=== PATIENT | female | born 1995 | race Caucasian/White ===

== ENCOUNTER 2018-02-25 10:46 | Inpatient (IN) | payer OTHER ==
[~2018-02-25] VITALS: Ht 175.3 cm; Wt 85.9 kg
[2018-02-25] MEDS ORDERED: SODIUM CHLORIDE 0.9% 1,000ML IVBOLUS ONE (13:00)
[2018-02-25] MEDS ORDERED: THIAMINE 100 MG in SODIUM CHLORIDE 0.9% 50 ML IVPB ONE (13:00)
[2018-02-25] MEDS ORDERED: SODIUM CHLORIDE FLUSH 10ML SYR IVF ONE (13:00)
[2018-02-25] MEDS ORDERED: ONDANSETRON ODT 4 MG PO ONE (13:00)
[2018-02-25 13:12] LABS: BASOPHILS # (AUTO) 0.02 x10^3/uL (0-0.1); BASOPHILS % (AUTO) 0 % (0-1); EOSINOPHILS % (AUTO) 0 % (1-7); LYMPHOCYTES # (AUTO) 0.34 x10^3/uL (1-3.4); LYMPHOCYTES % (AUTO) 4 % (22-44); MD NO; MEAN CORPUSCULAR HEMOGLOBIN 34.6 pg (27.0-34.8); MEAN CORPUSCULAR HGB CONC 33.9 g/dL (32.4-35.8); MEAN CORPUSCULAR VOLUME 102.1 fL (80-100); MEAN PLATELET VOLUME 7.1 fL (7.4-10.4); MONOCYTES # (AUTO) 0.22 x10^3/uL (0.2-0.8); MONOCYTES % (AUTO) 3 % (2-9); NEUTROPHILS # (AUTO) 7.08 x10^3/uL (1.8-6.8); NEUTROPHILS % (AUTO) 92 % (42-75); PLATELET COUNT 222 x10^3/uL (130-400); RED BLOOD COUNT 4.25 x10^6/uL (3.82-5.3); RED CELL DISTRIBUTION WIDTH 13.2 % (9.6-15.2)
[2018-02-25] MEDS ORDERED: ONDANSETRON ODT 4 MG ONE (13:21)
[2018-02-25] MEDS ORDERED: LORazepam 2 MG/ML, 1ML ONE (13:22)
[2018-02-25 13:23] LABS: ALBUMIN 4.5 g/dL (3.4-5.0); ANION GAP 18 mmol/L (5-15); CALCIUM 8.7 mg/dL (8.5-10.1); CHLORIDE 103 mmol/L (98-107)
[2018-02-25 13:28] LABS: ALANINE AMINOTRANSFERASE 123 U/L (12-78); ALKALINE PHOSPHATASE 92 U/L (45-117); BILIRUBIN,TOTAL 1.1 mg/dL (0.2-1.0); CREATININE 0.73 mg/dL (0.55-1.02); TOTAL PROTEIN 7.9 g/dL (6.4-8.2)
[2018-02-25] MEDS: LORazepam 2 MG/ML, 1ML IVPush PRN ×2 (13:29→15:00)
[2018-02-25] MEDS ORDERED: POTASSIUM CHLORIDE 20 MEQ, MAGNESIUM SULFATE 2 GM, THIAMINE 100 MG, MVI ADULT 10 ML, FO... IV SCH (15:27)
[2018-02-25] MEDS: D5%-0.45NACL+KCL 20MEQ 1,000 ML IV SCH (15:27)
[2018-02-25] MEDS ORDERED: LORazepam 2 MG/ML, 1ML IVPush PRN ×2 (15:30→16:00)
[2018-02-25] MEDS ORDERED: POLYETHYLENE GLYCOL 17 GM PACKET PO PRN (15:30)
[2018-02-25] MEDS ORDERED: LACTATED RINGERS 1,000 ML IVBOLUS ONE (15:30)
[2018-02-25] MEDS ORDERED: LABETALOL 5MG/ML, 20ML IVPush PRN (15:30)
[2018-02-25] MEDS ORDERED: BISACODYL 10 MG SUPP PR PRN (15:30)
[2018-02-25] MEDS ORDERED: DOCUSATE 100 MG CAPSULE PO PRN (15:30)
[2018-02-25] MEDS ORDERED: ACETAMINOPHEN 325 MG TABLET PO PRN (15:30)
[2018-02-25] MEDS ORDERED: ONDANSETRON 2MG/ML, 2ML IVPush PRN (15:30)
[2018-02-25 15:35] LABS: FIO2 ROOM AIR %
[2018-02-25 16:57] VITALS: BP 121/76
[2018-02-25] MEDS: BACLOFEN 10 MG TABLET PO SCH ×2 (17:30→21:09)
[2018-02-25 19:10] VITALS: BP 131/80
[2018-02-26 02:00] VITALS: BP 124/80
[2018-02-26] MEDS: D5%-0.45NACL+KCL 20MEQ 1,000 ML IV SCH (04:14)
[2018-02-26 05:02] LABS: BASOPHILS # (AUTO) 0.02 x10^3/uL (0-0.1); BASOPHILS % (AUTO) 1 % (0-1); EOSINOPHILS # (AUTO) 0.03 x10^3/uL (0-0.4); EOSINOPHILS % (AUTO) 1 % (1-7); LYMPHOCYTES # (AUTO) 0.72 x10^3/uL (1-3.4); LYMPHOCYTES % (AUTO) 19 % (22-44); MD NO; MEAN CORPUSCULAR HEMOGLOBIN 34.9 pg (27.0-34.8); MEAN CORPUSCULAR HGB CONC 34.1 g/dL (32.4-35.8); MEAN CORPUSCULAR VOLUME 102.4 fL (80-100); MEAN PLATELET VOLUME 7.5 fL (7.4-10.4); MONOCYTES # (AUTO) 0.42 x10^3/uL (0.2-0.8); MONOCYTES % (AUTO) 11 % (2-9); NEUTROPHILS # (AUTO) 2.71 x10^3/uL (1.8-6.8); NEUTROPHILS % (AUTO) 69 % (42-75); PLATELET COUNT 185 x10^3/uL (130-400); RED BLOOD COUNT 3.86 x10^6/uL (3.82-5.3)
[2018-02-26 05:14] LABS: ALBUMIN 3.5 g/dL (3.4-5.0); ANION GAP 8 mmol/L (5-15); CALCIUM 8.5 mg/dL (8.5-10.1); CHLORIDE 108 mmol/L (98-107)
[2018-02-26 05:17] LABS: ALANINE AMINOTRANSFERASE 80 U/L (12-78); ALKALINE PHOSPHATASE 76 U/L (45-117); BILIRUBIN,TOTAL 1.2 mg/dL (0.2-1.0); TOTAL PROTEIN 6.4 g/dL (6.4-8.2)
[2018-02-26 07:24] VITALS: BP 102/68
[2018-02-26] MEDS: BACLOFEN 10 MG TABLET PO SCH ×3 (08:22→21:57)
[2018-02-26 13:10] VITALS: BP 127/89
[2018-02-26 14:08] LABS: FOLATE LEVEL > 20.0 ng/mL (3.1-17.5)
[2018-02-26] MEDS: FOLIC ACID 1 MG TABLET PO SCH (15:06)
[2018-02-26] MEDS: THIAMINE 100MG TABLET PO SCH (15:06)
[2018-02-26 16:23] VITALS: BP 130/80
[2018-02-26 19:14] VITALS: BP 121/82
[2018-02-27 03:12] VITALS: BP 119/83
[2018-02-27 05:46] LABS: ALANINE AMINOTRANSFERASE 118 U/L (12-78); ALBUMIN 3.6 g/dL (3.4-5.0); ANION GAP 7 mmol/L (5-15); CALCIUM 9.1 mg/dL (8.5-10.1); CHLORIDE 106 mmol/L (98-107); CREATININE 0.67 mg/dL (0.55-1.02)
[2018-02-27 05:53] LABS: ALKALINE PHOSPHATASE 99 U/L (45-117); BILIRUBIN,TOTAL 1.1 mg/dL (0.2-1.0); TOTAL PROTEIN 6.8 g/dL (6.4-8.2)
[2018-02-27 07:33] VITALS: BP 109/75
[2018-02-27] MEDS: BACLOFEN 10 MG TABLET PO SCH (09:00)
[2018-02-27] MEDS ORDERED: MULTIVITAMIN 1 TABLET PO SCH (09:00)
[2018-02-27] MEDS: FOLIC ACID 1 MG TABLET PO SCH (09:00)
[2018-02-27] MEDS: THIAMINE 100MG TABLET PO SCH (09:00)
[2018-02-27] MEDS ORDERED: ENOXAPARIN 40 MG/0.4 ML SQ SCH (13:00)
[2018-02-27 14:32] VITALS: BP 128/82
[2018-02-27] MEDS ORDERED: FOLI-17 PO (17:20)
[2018-02-27] MEDS ORDERED: THIA100T6 PO (17:20)
== END 2018-02-27 18:18 | disposition home or self-care (01) | DRG 433 ==
LOC: ED 14:59 → EDIP 15:00 → ED 16:01 → 3NE 16:07
PROVIDERS: ADMIT Hospitalist; ATTEND Hospitalist
DX: K70.10 Alcoholic hepatitis without ascites (principal); E87.2 Acidosis; F10.239 Alcohol dependence with withdrawal, unspecified; E86.0 Dehydration; F10.229 Alcohol dependence with intoxication, unspecified; F12.90 Cannabis use, unspecified, uncomplicated; F41.9 Anxiety disorder, unspecified; D75.89 Other specified diseases of blood and blood-forming organs; Z83.3 Family history of diabetes mellitus
CPT/HCPCS: 36415; 36600; 76700; 80053; 80074; 80307; 82607; 82746; 82803; 84703; 85025; 96361; 96365; 96375; 96376; J3411; J3475; J3480; J7042; Q0162; J2060; J7030

== ENCOUNTER 2018-06-14 09:43 | Emergency (ER) | payer SELFPAY ==
[~2018-06-14] VITALS: Ht 175.3 cm; Wt 89.3 kg
[~2018-06-14 09:43] MED LIST: FOLI-17 PO; THIA100T67 PO
[2018-06-14] MEDS ORDERED: SODIUM CHLORIDE 0.9% 1,000ML IVBOLUS ONE (10:30)
[2018-06-14 10:40] LABS: BASOPHILS # (AUTO) 0.03 x10^3/uL (0-0.1); BASOPHILS % (AUTO) 1 % (0-1); EOSINOPHILS # (AUTO) 0.05 x10^3/uL (0-0.4); EOSINOPHILS % (AUTO) 1 % (1-7); LYMPHOCYTES # (AUTO) 0.87 x10^3/uL (1-3.4); LYMPHOCYTES % (AUTO) 15 % (22-44); MD NO; MEAN CORPUSCULAR HEMOGLOBIN 34.7 pg (27.0-34.8); MEAN CORPUSCULAR HGB CONC 34.2 g/dL (32.4-35.8); MEAN CORPUSCULAR VOLUME 101.6 fL (80-100); MEAN PLATELET VOLUME 6.5 fL (7.4-10.4); MONOCYTES # (AUTO) 0.67 x10^3/uL (0.2-0.8); MONOCYTES % (AUTO) 11 % (2-9); NEUTROPHILS % (AUTO) 73 % (42-75); PLATELET COUNT 205 x10^3/uL (130-400); RED BLOOD COUNT 4.43 x10^6/uL (3.82-5.3); RED CELL DISTRIBUTION WIDTH 13.4 % (9.6-15.2)
[2018-06-14 10:48] LABS: INTERNATIONAL NORMALIZED RATIO 1.03 (0.93-1.1); PROTHROMBIN TIME 10.6 Seconds (9.6-11.5)
[2018-06-14 10:50] LABS: HCG UR SG 1.002 (1.003-1.030)
[2018-06-14 10:51] LABS: ALANINE AMINOTRANSFERASE 74 U/L (12-78); ALBUMIN 4.4 g/dL (3.4-5.0); ANION GAP 11 mmol/L (5-15); CALCIUM 8.4 mg/dL (8.5-10.1); CHLORIDE 107 mmol/L (98-107); CREATININE 0.59 mg/dL (0.55-1.02)
[2018-06-14 10:54] LABS: ALKALINE PHOSPHATASE 84 U/L (45-117); BILIRUBIN,TOTAL 0.9 mg/dL (0.2-1.0); TOTAL PROTEIN 8.2 g/dL (6.4-8.2)
[2018-06-14 11:14] VITALS: BP 127/81
== END 2018-06-14 11:37 | disposition home or self-care (01) ==
LOC: ED 10:44
DX: K92.1 Melena (principal); F10.129 Alcohol abuse with intoxication, unspecified; K76.9 Liver disease, unspecified; K70.9 Alcoholic liver disease, unspecified; F19.10 Other psychoactive substance abuse, uncomplicated
CPT/HCPCS: 36415; 80053; 81025; 85025; 85610; 99284